=== PATIENT | male | born 1940 | race Caucasian/White ===

== ENCOUNTER 2018-11-11 14:34 | Emergency (ER) | payer BC, MEDICARE ==
[~2018-11-11] VITALS: Ht 175.3 cm; Wt 81.6 kg
--- NOTE | 2018-11-11 14:55 | NUR ---
PT BIB RA99 FROM [facility] ([phone]) S/P ENTROPION REPAIR. PER NOTE RECEIVED FROM YUE MORENO FROM DR. KIMBERLY DALEY'S OFFICE, PT'S HR WAS IRREGULAR AND IN THE 30'S S/P ENTROPION REPAIR. PT IS A/OX4 AND PRESENTS W/ A PACEMAKER ON LACW. PT'S VSS W/ REGULAR HR IN THE 60S. PT DENIES ANY COMPLAINT AT THIS TIME.
--- NOTE | 2018-11-11 14:58 | NUR ---
CALLED DR. KIMBERLY DALEY'S OFFICE AND SPOKE W/ DR. DALEY AND ERWIN - 5 CC OF LIDO W/ EPI WAS USED FOR LOCAL ANESTHESIA AND IV PROPOFOL FOR CONSCIOUS SEDATION FOR THE ENTROPION REPAIR APPROXIMATELY AT 1300.
--- NOTE | 2018-11-11 15:02 | NUR ---
CALLED DR. SANDOVAL'S OFFICE FOR TO DR HERNANDEZ. AWAITING CALLBACK.
--- NOTE | 2018-11-11 15:04 | NUR ---
PRINCIPAL HARDWARE ARCHITECT AT BEDSIDE.
[2018-11-11] MEDS ORDERED: ASPI81TA31 PO (15:11)
[2018-11-11] MEDS ORDERED: SENN-18 PO (15:12)
[2018-11-11] MEDS ORDERED: METO-356 PO (15:12)
[2018-11-11] MEDS ORDERED: LEVO100T10 PO (15:12)
[2018-11-11] MEDS ORDERED: NALO25TA PO (15:12)
[2018-11-11] MEDS ORDERED: DOXA4TAB3 PO (15:12)
[2018-11-11] MEDS ORDERED: SUCR1TAB PO (15:12)
[2018-11-11] MEDS ORDERED: DILT180C66 PO (15:12)
[2018-11-11] MEDS ORDERED: LISI10TA5 PO (15:12)
[2018-11-11] MEDS ORDERED: HYDR-4077 PO (15:12)
[2018-11-11] MEDS ORDERED: POLY17PO4 PO (15:12)
[2018-11-11] MEDS ORDERED: BUME1TAB4 PO (15:12)
[2018-11-11] MEDS ORDERED: BISA10SU61 RC (15:12)
[2018-11-11] MEDS ORDERED: ATOR10TA PO (15:12)
[2018-11-11] MEDS ORDERED: PANT40TA4 PO (15:12)
[2018-11-11] MEDS ORDERED: MORP15TA7 PO (15:12)
[2018-11-11] MEDS ORDERED: FINA5TAB11 PO (15:12)
[2018-11-11 15:18] LABS: BASOPHILS # (AUTO) 0.1 K/uL (0.0-8.0); BASOPHILS % (AUTO) 0.8 % (0.0-2.0); EOSINOPHILS # (AUTO) 0.1 K/uL (0.0-0.7); EOSINOPHILS % (AUTO) 1.9 % (0.0-7.0); HEMATOCRIT 34.8 % (36.7-47.1); HEMOGLOBIN 11.2 g/dL (12.5-16.3); LYMPHOCYTES # (AUTO) 0.7 K/uL (20.0-40.0); LYMPHOCYTES % (AUTO) 10.8 % (20.5-51.5); MEAN CORPUSCULAR HGB CONC 32 g/dL (32.5-36.3); MEAN CORPUSCULAR VOLUME 84.2 fL (73.0-96.2); MONOCYTES # (AUTO) 0.5 K/uL (2.0-10.0); MONOCYTES % (AUTO) 7.7 % (0.0-11.0); NEUTROPHILS # (AUTO) 5.4 K/uL (1.8-8.9); NEUTROPHILS % (AUTO) 78.8 % (38.5-71.5); PLATELET COUNT (AUTO) 131 K/uL (152-348); RED BLOOD CELL COUNT(AUTO) 4.14 MIL/uL (4.06-5.63); WHITE BLOOD COUNT (AUTO) 6.9 K/uL (3.6-10.2)
[2018-11-11 15:23] LABS: ALANINE AMINOTRANSFERASE 28 U/L (16-63); ALKALINE PHOSPHATASE 105 U/L (50-136); ASPARTATE AMINOTRANSFERASE 24 U/L (15-37); BILIRUBIN,DIRECT 0.1 mg/dL (0.0-0.2); BILIRUBIN,TOTAL 0.3 mg/dL (0.2-1.0); CARBON DIOXIDE 28 mmol/L (21-32); CHLORIDE 103 mmol/L (98-107); CREATININE 1.2 mg/dL (0.6-1.3); GLUCOSE 171 mg/dL (74-106); POTASSIUM 3.6 mmol/L (3.5-5.1); TOTAL PROTEIN, SERUM 7.8 g/dL (6.4-8.2); UREA NITROGEN, BLOOD 31 mg/dL (7-18)
--- NOTE | 2018-11-11 17:02 | NUR ---
Patient discharged to home in stable conditon. Written and verbal after care instructions given. Patient verbalizes understanding of instructions. PT D/C W/ PRESCRIPTION. ALL BELONGINGS W/ PT. PT SELF-AMBULTED USING FWW W/O DIFFICULTY. 22G IV ACCESS IN RAC REMOVED PRIOR TO D/C - INNER CANNULA INTACT.
[2018-11-11 17:06] VITALS: BP 163/70
--- NOTE | 2018-11-11 17:07 | NUR ---
PT WILL BE DRIVEN HOME BY FAMILY MEMBER IN PRIVATE VEHICLE.
== END 2018-11-11 17:11 | disposition home or self-care (01) ==
LOC: ER 14:34
DX: Z45.018 Encounter for adjustment and management of other part of cardiac pacemaker (principal); Z98.890 Other specified postprocedural states; I97.790 Other intraoperative cardiac functional disturbances during cardiac surgery; I25.10 Atherosclerotic heart disease of native coronary artery without angina pectoris; E78.5 Hyperlipidemia, unspecified; E11.9 Type 2 diabetes mellitus without complications; Z90.49 Acquired absence of other specified parts of digestive tract; Z88.8 Allergy status to other drugs, medicaments and biological substances; Z79.899 Other long term (current) drug therapy; Z79.82 Long term (current) use of aspirin
CPT/HCPCS: 36415; 70030-TC; 71045; 84443; 85025; 85730; 93005; A4663